=== PATIENT | female | born 1940 | race Caucasian/White ===

== ENCOUNTER 2018-01-30 14:35 | Emergency (ER) | payer MEDICARE ==
[~2018-01-30] VITALS: Ht 167.6 cm; Wt 56.7 kg
[~2018-01-30 14:35] MED LIST: CAPTOPRIL5 GM; CAPTOPRIL50 MG PO; CARAFATE1 GM/10 ML PO; CITALOPRAM HBR20 MG PO; PANTOPRAZOLE SO40 MG PO; PERSANTINE25 MG PO; PERSANTINE75 MG; VERAPAMIL ER120 MG; VERAPAMIL HCL80 MG PO; [UNRECOGNIZED DRUG - OTHER] PO
--- NOTE | 2018-01-30 18:10 | Diagnostic Imaging Report ---
Exam: Abdominal film Clinical History: Constipation, nausea Comparison: KUB 01/10/2017 and 03/30/2017 DISCUSSION: Nonobstructive bowel gas pattern with mild amount retained stool in the distal colon and rectum. Scattered amorphous radiopaque densities project in the small bowel. No calcifications project over the genitourinary system. No acute bony abnormalities. Generalized osteopenia. Degenerative changes in the lumbosacral spine, with stable rightward curvature. Lung bases are clear. IMPRESSION: 1. Nonobstructive bowel gas pattern with mild amount of retained stool in the distal colon and rectum. 2. Scattered amorphous radiopaque densities project in the small bowel and may represent residual oral contrast if the patient has had a recent prior GI study versus recent ingestion of bismuth containing antacids. The staff physician below has personally reviewed this exam on the date of dictation. Signed by: Dr. Alec Lopez M.D. on 01/30/2018 6:07 PM
[2018-01-30] MEDS ORDERED: ONDANSETRON HCL 4 MG ORAL DISINTEGRATING TAB PO ONE (18:30)
[2018-01-30 19:31] VITALS: BP 148/69
[2018-01-30] MEDS ORDERED: ZOFRAN ODT4 MG SL (19:31)
== END 2018-01-30 19:41 | disposition home or self-care (01) ==
LOC: ER 14:35
DX: K59.00 Constipation, unspecified (principal); R11.0 Nausea
CPT/HCPCS: 74018; 99283

== ENCOUNTER 2019-07-08 10:06 | Inpatient (IN) | payer MEDICARE ==
[~2019-07-08] VITALS: Ht 167.6 cm; Wt 56.7 kg
[~2019-07-08 10:06] MED LIST changes: +ZOFRAN ODT4 MG SL
[2019-07-08] MEDS ORDERED: SODIUM CHLORIDE 0.9% 1000ML 1,000 ML IV STA (10:25)
[2019-07-08] MEDS ORDERED: ASPIRIN 81 MG CHEW TAB PO ONE (10:30)
[2019-07-08 11:17] LABS: BASOPHILS % 0.2 % (0.0-1.0); EOSINOPHILS % 0.1 % (0.0-6.0); HEMATOCRIT 32.1 % (34.2-44.1); HEMOGLOBIN 10.4 g/dL (12.0-16.0); LYMPHOCYTES % 5.8 % (18.0-39.1); MEAN CORPUSCULAR HEMOGLOBIN 29.9 pg (28-32); MEAN CORPUSCULAR HGB CONC 32.4 g/dL (31-35); MEAN CORPUSCULAR VOLUME 92.2 fL (81-99); MONOCYTES # (AUTO) 0.9 (0.2-0.8); MONOCYTES % 5.3 % (4.4-11.3); NEUTROPHILS # (AUTO) 14.5 (2.1-6.9); NEUTROPHILS % 88.1 % (38.7-80.0); PLATELET COUNT 397 x10e3/uL (140-360); RED BLOOD COUNT 3.48 x10e6/uL (3.6-5.1); RED CELL DISTRIBUTION WIDTH 13.7 % (11.7-14.4)
[2019-07-08 11:31] LABS: INR 0.96; PROTHROMBIN TIME 13.4 seconds (11.9-14.5)
[2019-07-08 11:32] LABS: PARTIAL THROMBOPLASTIN TIME 26.2 seconds (23.8-35.5)
[2019-07-08 11:40] LABS: ALANINE AMINOTRANSFERASE 16 IU/L (0-55); ALBUMIN 3.8 g/dL (3.5-5.0); ALBUMIN/GLOBULIN RATIO 1.2 (0.8-2.0); ALKALINE PHOSPHATASE 74 IU/L (40-150); ANION GAP 17.5 mmol/L (8-16); BLOOD UREA NITROGEN 18 mg/dL (7-26); BUN/CREATININE RATIO 11 (6-25); CALCIUM 10.1 mg/dL (8.4-10.2); CARBON DIOXIDE 20 mmol/L (22-29); CHLORIDE 105 mmol/L (98-107); CREATINE KINASE 69 IU/L (29-168); CREATININE, SERUM 1.59 mg/dL (0.57-1.11); EST GLOMERULAR FILTRATION RATE 31 ML/MIN (60-); GLUCOSE 146 mg/dL (74-118); POTASSIUM 4.5 mmol/L (3.5-5.1); SODIUM 138 mmol/L (136-145)
[2019-07-08] MEDS ORDERED: LEVOFLOXACIN 750MG/D5W 150ML 150 ML IV SCH ×2 (12:00→12:15)
[2019-07-08] MEDS ORDERED: MORPHINE SULFATE INJ 4 MG/ML INJ 1ML IV PRN (12:15)
[2019-07-08] MEDS ORDERED: ONDANSETRON HCL INJ 2MG/ML 2ML 2 MG/ML VIAL IV PRN (12:15)
--- NOTE | 2019-07-08 12:35 | Diagnostic Imaging Report ---
EXAMINATION: CHEST 2 VIEWS INDICATION: Vomiting. COMPARISON: KUB 01/30/2018. FINDINGS: TUBES and LINES: None. LUNGS: Hyperinflated lungs. There is mild patchy bibasilar opacities, likely atelectasis. No evidence of pulmonary edema. There is biapical pleural-parenchymal opacity. Central bronchial wall thickening. PLEURA: No pleural effusion or pneumothorax. HEART AND MEDIASTINUM: The cardiomediastinal silhouette is unremarkable. BONES AND SOFT TISSUES: No acute osseous abnormality. There is a remote healed right mid hemithorax rib fracture. Severe compression deformity in the lower thoracic spine, with similar appearance on frontal view compared to prior KUB. UPPER ABDOMEN: No free air under the diaphragm. IMPRESSION: Hyperinflated lungs, which may represent emphysema with central bronchial wall thickening, suggestive of bronchitis. Mild patchy bibasilar opacities, likely atelectasis. No evidence of lobar pneumonia. Signed by: Dr. Zahra Saha MD on 07/08/2019 12:32 PM
--- NOTE | 2019-07-08 13:00 | NUR ---
pt refusing any urine sample, pt states only wanting iv on forearm and not in hands or ac. pt dictated all care and accomidated. iv obtained x one stick successfully.
[2019-07-08] MEDS ORDERED: OMEPRAZOLE40 MG (13:35)
[2019-07-08] MEDS ORDERED: DIPYRIDAMOLE (13:35)
[2019-07-08] MEDS ORDERED: LISINOPRIL10 MG (13:35)
[2019-07-08] MEDS ORDERED: LEVOTHYROXINE50 MCG (13:35)
--- NOTE | 2019-07-08 13:35 | NUR ---
green sheet done per policy and on chart.
--- NOTE | 2019-07-08 14:26 | NUR ---
assisted to bedside commode.
--- NOTE | 2019-07-08 16:39 | NUR ---
all call bells immediately answered, lactic treated and decreased, iv antibiotics and ivf's given, pt updated multiple times with plan of care and given bedside commode and helped to toliet twice. pt refused monitors, refused ua sample, pt flat affect and argumentative entire visit with staff. pt was given fall socks, multiple warm blankets and came straight back from triage to room. chg nurse talked with pt as well, md talked with pt as well, rn primary talked w/pt at great length regarding importance of remaining inpt/hospitalized. pt aaox4, insisted on AMA and aware of all risk.
[2019-07-09] MEDS ORDERED: LEVOFLOXACIN 750MG/D5W 150ML 150 ML IV SCH (12:00)
--- NOTE | 2019-07-10 06:02 | History and Physical ---
The patient left AMA in the emergency room, she was not seen by me, so she was not to be charged visit by me. This, we will have to the constitute as H and P since she was not seen by me. I could not perform an H and P since she left AMA. Please see emergency room notes for full details. MD CECY Mc/ANDRES /[id number]
--- NOTE | 2019-07-10 06:02 | Discharge Summary ---
The patient left AMA from the emergency room before I could even see the patient. So, therefore I did not do a full H and P or discharge summary since I did not see the patient for. The patient admitted to the floor, so therefore I have not billed for this admission, so you can see emergency room notes for full details of this AMA patient, who was not admitted to the floor. Please see hospital chart for full details. MD CECY Mc/ANDRES /[id number]
== END 2019-07-08 16:48 | disposition left against medical advice (07) | DRG 192 ==
LOC: ER 10:06 → ERHOLD 12:10
PROVIDERS: ADMIT Internal Medicine; ATTEND Internal Medicine
DX: J43.9 Emphysema, unspecified (principal)
CPT/HCPCS: 36415; 71046; 80053; 82550; 82553; 83605; 83880; 84484; 85025; 85610; 85730; 87040; 93005; 94760; 99284; J7030

== ENCOUNTER 2021-11-23 09:12 | Emergency (ER) | payer MEDICARE, OTHER ==
[~2021-11-23] VITALS: Ht 165.1 cm; Wt 54.4 kg
[~2021-11-23 09:12] MED LIST changes: +DIPYRIDAMOLE; +LEVOTHYROXINE50 MCG; +LISINOPRIL10 MG; +OMEPRAZOLE40 MG
[2021-11-23] MEDS ORDERED: SODIUM CHLORIDE 0.9% 1000ML 1,000 ML IV STA (09:33)
[2021-11-23] MEDS ORDERED: FAMOTIDINE 20 MG/2 ML VIAL IV ONE ×2 (09:45→09:47)
[2021-11-23] MEDS ORDERED: ONDANSETRON HCL INJ 2MG/ML 2ML 2 MG/ML VIAL IV ONE (09:45)
[2021-11-23] MEDS ORDERED: ONDANSETRON HCL INJ 2MG/ML 2ML 2 MG/ML VIAL ONE (09:47)
[2021-11-23] MEDS ORDERED: SODIUM CHLORIDE 0.9% 1000ML 1,000 ML ONE (09:47)
[2021-11-23] MEDS ORDERED: OMEPRAZOLE40 MG PO (10:53)
[2021-11-23] MEDS ORDERED: ONDANSETRON ODT4 MG PO (10:53)
== END 2021-11-23 11:09 | disposition home or self-care (01) ==
LOC: FSED 09:23
DX: R11.2 Nausea with vomiting, unspecified (principal); E86.0 Dehydration; I12.9 Hypertensive chronic kidney disease with stage 1 through stage 4 chronic kidney disease, or unspecified chronic kidney disease; N18.9 Chronic kidney disease, unspecified; D64.9 Anemia, unspecified; K21.9 Gastro-esophageal reflux disease without esophagitis; I25.10 Atherosclerotic heart disease of native coronary artery without angina pectoris; H15.9 Unspecified disorder of sclera; R94.31 Abnormal electrocardiogram [ECG] [EKG]
CPT/HCPCS: 74176; 80053; 81003; 82553; 84484; 85025; 93005; 96374; 96376; 99284; J2405; J7030